=== PATIENT | female | born 1970 | race African-American/Black ===

== ENCOUNTER 2024-10-10 09:39 | Emergency (ER) | payer OTHER, SELFPAY ==
--- NOTE | ~2024-10-10 | CT_ITS ---
EXAMINATION: CT brain wo con DATE: 10/10/2024 11:51 INDICATION: Vertigo TECHNIQUE: Computed tomography (CT) of the head was performed without intravenous contrast. Sagittal and coronal reconstructions were performed. The mA was adjusted according to patient size. Iterative reconstruction technique was employed. The dose-length product was 605.33 mGy-cm. COMPARISON: None FINDINGS: No acute intracranial hemorrhage, acute infarction or abnormal extra axial fluid collection. There is mild scattered white matter hypoattenuation consistent with chronic small vessel ischemic disease. Ventricles are normal and symmetric. No mass/mass effect. The orbits, paranasal sinuses and mastoid a ir cells are normal. IMPRESSION: 1. Mild scattered white matter hypoattenuation consistent with chronic small vessel ischemic disease. No acute intracranial process. Reviewed, dictated and finalized at location B. E[facility] INSTRUMENT OPERATOR IMPRESSION: 1. Mild scattered white matter hypoattenuation consistent with chronic small ve ssel ischemic disease. No acute intracranial process.
[2024-10-10 09:44] VITALS: BP 149/87; PULSE 98; RESP 20; TEMP 36.3; O2SAT 100
--- NOTE | 2024-10-10 10:36 | PC.NURSE ---
Pt reports treated at [facility] 2-4 days ago for dizziness, h/a. New diagnosis of HTN prescribed Amlodipine 5mg. Pt denies h/a at this time. States feeling off intermittent dizziness. Pt states she has been compliment with medication.
[2024-10-10 10:42] VITALS: PULSE 89
[2024-10-10 10:43] VITALS: BP 149/82; PULSE 92; RESP 18; O2SAT 100
--- NOTE | 2024-10-10 11:20 | ED.GENADULT ---
HPI - General Adult General Chief complaint: Dizziness Stated complaint: dizziness, left hand numbness x1 week Time Seen by Provider: 10/10/24 09:47 History of Present Illness HPI narrative: 54-year-old female presenting to the emergency department for evaluation for dizziness and headache. Patient states over the course of the last week she has had almost daily migraines. Patient has been taking Excedrin and this helped a migraine. Patient states that today when she went to work she had onset of dizziness and some gait instability. Patient felt like she was having a movement sensation and bumping into [place]. Patient denies any focal numbness or weakness. Patient denies any current headache. Patient denies any prior history of vertigo. Patient states the dizziness has since improved. Related Data Allergies Allergy/AdvReac Type Severity Reaction Status Date / Time No Known Allergies Allergy Verified 10/10/24 09:40 Review of Systems Review of Systems: All systems reviewed & are unremarkable except as noted in HPI and below Exam Narrative: APPEARANCE: Well appearing, no pain, no distress, well-nourished. HEAD: normocephalic, atraumatic. EYES: PERRLA/EOMI, conjunctivae clear. NOSE: Normal no drainage EARS:TMS clear with good light reflex. THROAT: Pharynx clear, no exudate. NECK: Supple. No adenopathy, no masses. RESPIRATORY: Airway patent, respirations nonlabored. Clear to auscultation bilaterally, no rales, rhonchi, wheezing. CARDIOVASCULAR: Regular rate and rhythm without murmurs rubs or gallops. ABDOMINAL: Soft, nontender, nondistended, normal bowel sounds MUSCULOSKELETAL: Moves all extremities. Strength/ROM intact, No edema, No calf tenderness. NEURO: Alert. Cranial nerves II through XII intact. Grossly intact SKIN: Warm, dry. Normal Color Course Vital Signs Vital signs: Vital Signs Temperature 97.3 F L 10/10/24 09:44 Pulse Rate 98 10/10/24 09:44 Respiratory Rate 20 10/10/24 09:44 Blood Pressure 149/87 H 10/10/24 09:44 Pulse Oximetry 100 10/10/24 09:44 Oxygen Delivery Room Air 10/10/24 09:44 Temperature 97.9 F 10/10/24 12:58 Pulse Rate 94 10/10/24 12:58 Respiratory Rate 16 10/10/24 12:58 Blood Pressure 140/76 10/10/24 12:58 Pulse Oximetry 100 10/10/24 12:58 Oxygen Delivery Room Air 10/10/24 09:44 Medical Decision Making MDM Narrative Medical decision making narrative: 54-year-old female presenting to the emergency department for evaluation for intermittent headache and intermittent dizziness. Patient states headache was resolved prior to arriving to the emergency department. Patient reports that her dizziness resolved after meclizine. On re-evaluation patient denies any pain or complaint. Patient was treated with IV Compazine, IV Benadryl and p.o. Antivert. Head CT showed no acute intracranial abnormality. Patient was updated results of her workup and diagnosis vertigo. Patient will be provided meclizine for home. Patient was updated on reasons to return to the emergency department. All questions concerns were addressed. Differential Diagnosis Differential Diagnosis: Migraine, TIA, CVA, vertigo Vital Signs Vital Signs: Vital Signs Temperature 97.3 F L 10/10/24 09:44 Pulse Rate 98 10/10/24 09:44 Respiratory Rate 20 10/10/24 09:44 Blood Pressure 149/87 H 10/10/24 09:44 Pulse Oximetry 100 10/10/24 09:44 Oxygen Delivery Room Air 10/10/24 09:44 Temperature 97.9 F 10/10/24 12:58 Pulse Rate 94 10/10/24 12:58 Respiratory Rate 16 10/10/24 12:58 Blood Pressure 140/76 10/10/24 12:58 Pulse Oximetry 100 10/10/24 12:58 Oxygen Delivery Room Air 10/10/24 09:44 Imaging Data Radiologist's impression: Impressions Head CT 10/10/24 11:58 IMPRESSION: 1. Mild scattered white matter hypoattenuation consistent with chronic small vessel ischemic disease. No acute intracranial process. Discharge Plan Discharge Clinical Impression: Vertigo Patient Disposition: Home, Self-Care Condition: Stable Instructions: Antibiotic Form, Vertigo (ED), Benign Paroxysmal Positional Vertigo (ED) Additional Instructions: Meclizine as needed for vertigo control. Have close follow-up with your primary care physician. If you have any worsening symptoms and please call or return to the emergency department. Prescriptions: New meclizine 25 mg tablet 25 mg PO BID PRN (Reason: dizziness) Qty: 20 0RF Follow-up/Referrals: UNKNOWN,DOCTOR [Primary Care Provider] - Stand Alone Forms: Work/School Release IP
[2024-10-10] MEDS: MECLIZINE HCL 25 MG TABLET PO (11:32)
[2024-10-10] MEDS: PROCHLORPERAZINE EDISYLATE 10 MG/2 ML VIAL IV PUSH (11:32)
[2024-10-10] MEDS: diphenhydrAMINE HCl INJ 50 MG/ML VIAL 25 MG IV PUSH (11:32)
[2024-10-10 11:36] VITALS: BP 144/78; PULSE 95; RESP 20; TEMP 36.6; O2SAT 99
[2024-10-10 12:58] VITALS: BP 140/76; PULSE 94; RESP 16; TEMP 36.6; O2SAT 100
== END 2024-10-10 13:00 | disposition home or self-care (01) ==
PROVIDERS: Emergency Provider Emergency Medicine
DX: R42 Dizziness and giddiness (principal)
CPT/HCPCS: 70450; 96374; 96375; 99284; A9270; J0780; J1200